=== PATIENT | male | born 1960 | race Caucasian/White ===

== ENCOUNTER 2017-06-16 20:02 | Emergency (ER) | payer BC ==
[2017-06-16 23:47] LABS: Hematocrit 44 % (42-52); Hemoglobin 15.3 g/dl (14.0-18.0); Mean Corpuscular HGB Conc 35 g/dl (31-36); Mean Corpuscular Hemoglobin 31 pg (27-31); Mean Corpuscular Volume 89 fL (80-94); Mean Platelet Volume 7 um3 (7.4-10.4); Red Blood Count 4.93 10^6/ul (4.0-5.4); Red Cell Distribution Width 14 % (10.5-15); White Blood Count 8.8 10^3/ul (3.5-10.8)
[2017-06-17 00:02] LABS: Albumin 4.2 g/dL (3.2-5.2); BUN/Creatinine Ratio 22.9 (8-20); Calcium 9.4 mg/dL (8.6-10.3); EGFR African American 89.7 (>60); EGFR Non-African American 69.7 (>60); Globulin 2.6 g/dL (2-4); Total Bilirubin 0.3 mg/dL (0.2-1.0); Total Protein 6.8 g/dL (6.4-8.9)
[2017-06-17 00:27] LABS: Potassium 4.1 mmol/L (3.5-5.0)
[2017-06-17] MEDS ORDERED: ALPRAZolam TAB* 0.25 MG PO ONE (01:00)
--- NOTE | 2017-06-17 01:11 | ED ---
Елена Collazo Emily, scribed for Bo Zhang on 06/16/17 at 2306 . Shortness of Breath - HPI Summary HPI Summary: This patient is a 56 year old M presenting to [facility] accompanied by family with a chief complaint of intermittent SOB that began 2 weeks ago. Symptoms began upon operation on R foot. The patient rates the pain 0/10 in severity. Symptoms aggravated by time of day (specifically night). Symptoms alleviated by nothing. Patient reports panic attacks. Pt was seen on 06/02/2017 for similar symptoms and was diagnosed with anxiety. - History of Current Complaint Chief Complaint: EDShortnessOfBreath Time Seen by Provider: 06/16/17 22:26 Hx Obtained From: Patient Onset/Duration: Sudden Onset, Lasting Weeks, Still Present Timing: Constant Aggrevating Factors: Nothing Alleviating Factors: Nothing - Allergy/Home Medications Allergies/Adverse Reactions: Allergies Allergy/AdvReac Type Severity Reaction Status Date / Time crestor Allergy Severe Difficulty Uncoded 01/27/13 08:58 Breathing/Wheezing Home Medications: Home Medications Meclizine HCl [Meclizine 25] 25 mg PO Q6HR PRN 06/16/17 [History Confirmed 06/16] hydrOXYzine HCL TAB* [Atarax 10 MG TAB*] 10 mg PO TID PRN 06/16/17 [History Confirmed 06/16/17] PMH/Surg Hx/FS Hx/Imm Hx Previously Healthy: No Endocrine/Hematology History: Denies: Hx Diabetes, Hx Thyroid Disease Cardiovascular History: Reports: Hx Hypertension Denies: Hx Pacemaker/ICD Respiratory History: Denies: Hx Asthma, Hx Chronic Obstructive Pulmonary Disease (COPD) GI History: Denies: Hx Ulcer Sensory History: Denies: Hx Hearing Aid Psychiatric History: Denies: Hx Panic Disorder - Surgical History Surgery Procedure, Year, and Place: APPY, TONSILS, HYDROCELE REMOVED 1993. LEFT FOOT REBUILT-2013 - Immunization History Immunizations Up to Date: Yes Infectious Disease History: No Infectious Disease History: Denies: Hx Clostridium Difficile, Hx Hepatitis, Hx Human Immunodeficiency Virus (HIV), Hx of Known/Suspected MRSA, Hx Shingles, Hx Tuberculosis, Hx Known/ Suspected VRE, Hx Known/Suspected VRSA, History Other Infectious Disease, Traveled Outside the [place] in Last 30 Days - Family History Known Family History: Positive: None - Social History Occupation: Employed Full-time Lives: With Family Alcohol Use: None Substance Use Type: Reports: None Smoking Status (MU): Never Smoked Tobacco Review of Systems Positive: Shortness Of Breath Positive: Other - Positive panic attacks All Other Systems Reviewed And Are Negative: Yes Physical Exam Triage Information Reviewed: Yes Vital Signs On Initial Exam: Initial Vitals Temp Pulse Resp BP Pulse Ox 98.2 F 80 23 156/93 99 06/16/17 20:04 06/16/17 20:04 06/16/17 20:04 06/16/17 20:04 06/16/17 20:04 Vital Signs Reviewed: Yes Appearance: Positive: Well-Appearing, No Pain Distress Skin: Positive: Warm, Skin Color Reflects Adequate Perfusion, Dry Head/Face: Positive: Normal Head/Face Inspection Eyes: Positive: EOMI, DILLON ENT: Positive: Normal ENT inspection Neck: Positive: Supple, Nontender Respiratory/Lung Sounds: Positive: Clear to Auscultation, Breath Sounds Present Cardiovascular: Positive: RRR, Pulses are Symmetrical in both Upper and Lower Extremities Abdomen Description: Positive: Nontender, Soft Bowel Sounds: Positive: Present Musculoskeletal: Positive: Normal, Strength/ROM Intact, Other - Cast on R leg Neurological: Positive: Normal, Sensory/Motor Intact, Alert, Oriented to Person Place, Time - [place] Coma Scale Coma Scale Total: 15 Diagnostics - Vital Signs Vital Signs Temp Pulse Resp BP Pulse Ox 06/16/17 22:33 67 98 06/16/17 22:32 137/97 06/16/17 20:04 98.2 F 80 23 156/93 99 - Laboratory Lab Results: Lab Results 06/16/17 06/16/17 06/16/17 Range/Units 23:38 23:38 23:38 WBC 8.8 (3.5-10.8) 10^3/ul RBC 4.93 (4.0-5.4) 10^6/ul Hgb 15.3 (14.0-18.0) g/dl Hct 44 (42-52) % MCV 89 (80-94) fL MCH 31 (27-31) pg MCHC 35 (31-36) g/dl RDW 14 (10.5-15) % Plt Count 247 (150-450) 10^3/ul MPV 7 L (7.4-10.4) um3 Neut % (Auto) 53.8 (38-83) % Lymph % (Auto) 30.3 (25-47) % [place] % (Auto) 10.6 H (1-9) % Eos % (Auto) 4.6 (0-6) % Baso % (Auto) 0.7 (0-2) % Absolute Neuts (auto) 4.7 (1.5-7.7) 10^3/ul Absolute Lymphs (auto) 2.7 (1.0-4.8) 10^3/ul Absolute Monos (auto) 0.9 H (0-0.8) 10^3/ul Absolute Eos (auto) 0.4 (0-0.6) 10^3/ul Absolute Basos (auto) 0.1 (0-0.2) 10^3/ul Absolute Nucleated RBC 0 10^3/ul Nucleated RBC % 0 INR (Anticoag Therapy) 0.84 L (0.89-1.11) APTT 23.7 L (26.0-36.3) seconds D-Dimer, Quantitative < 200 (Less Than 230) ng/mL Sodium (133-145) mmol/L Potassium (3.5-5.0) mmol/L Chloride (101-111) mmol/L Carbon Dioxide (22-32) mmol/L Anion Gap (2-11) mmol/L BUN (6-24) mg/dL Creatinine (0.67-1.17) mg/dL Est GFR ( Amer) (>60) Est GFR (Non-Af Amer) (>60) BUN/Creatinine Ratio (8-20) Glucose (70-100) mg/dL Lactic Acid (0.5-2.0) mmol/L Calcium (8.6-10.3) mg/dL Total Bilirubin (0.2-1.0) mg/dL AST (13-39) U/L ALT (7-52) U/L Alkaline Phosphatase (34-104) U/L Troponin I (<0.04) ng/mL B-Natriuretic Peptide 14 ( - 100) pg/mL Total Protein (6.4-8.9) g/dL Albumin (3.2-5.2) g/dL Globulin (2-4) g/dL Albumin/Globulin Ratio (1-3) 06/16/17 06/16/17 Range/Units 23:38 23:38 WBC (3.5-10.8) 10^3/ul RBC (4.0-5.4) 10^6/ul Hgb (14.0-18.0) g/dl Hct (42-52) % MCV (80-94) fL MCH (27-31) pg MCHC (31-36) g/dl RDW (10.5-15) % Plt Count (150-450) 10^3/ul MPV (7.4-10.4) um3 Neut % (Auto) (38-83) % Lymph % (Auto) (25-47) % [place] % (Auto) (1-9) % Eos % (Auto) (0-6) % Baso % (Auto) (0-2) % Absolute Neuts (auto) (1.5-7.7) 10^3/ul Absolute Lymphs (auto) (1.0-4.8) 10^3/ul Absolute Monos (auto) (0-0.8) 10^3/ul Absolute Eos (auto) (0-0.6) 10^3/ul Absolute Basos (auto) (0-0.2) 10^3/ul Absolute Nucleated RBC 10^3/ul Nucleated RBC % INR (Anticoag Therapy) (0.89-1.11) APTT (26.0-36.3) seconds D-Dimer, Quantitative (Less Than 230) ng/mL Sodium 137 (133-145) mmol/L Potassium 4.1 (3.5-5.0) mmol/L Chloride 103 (101-111) mmol/L Carbon Dioxide 27 (22-32) mmol/L Anion Gap 7 (2-11) mmol/L BUN 25 H (6-24) mg/dL Creatinine 1.09 (0.67-1.17) mg/dL Est GFR ( Amer) 89.7 (>60) Est GFR (Non-Af Amer) 69.7 (>60) BUN/Creatinine Ratio 22.9 H (8-20) Glucose 111 H (70-100) mg/dL Lactic Acid 1.5 (0.5-2.0) mmol/L Calcium 9.4 (8.6-10.3) mg/dL Total Bilirubin 0.30 (0.2-1.0) mg/dL AST 21 (13-39) U/L ALT 23 (7-52) U/L Alkaline Phosphatase 61 (34-104) U/L Troponin I 0.00 (<0.04) ng/mL B-Natriuretic Peptide ( - 100) pg/mL Total Protein 6.8 (6.4-8.9) g/dL Albumin 4.2 (3.2-5.2) g/dL Globulin 2.6 (2-4) g/dL Albumin/Globulin Ratio 1.6 (1-3) Result Diagrams: 06/16/17 23:38 06/16/17 23:38 Lab Statement: Any lab studies that have been ordered have been reviewed, and results considered in the medical decision making process. - Radiology CXR Xray Interpretation: No Acute Changes Radiology Interpretation Completed By: ED Physician - EKG 231 Cardiac Rate: NL - 56 BPM EKG Rhythm: Sinus Rhythm EKG Interpretation: No acute changes Re-Evaluation - Re-Evaluation First Eval Re-Evaluation Time: 00:56 Comment: Discussed plan of care with pt. Course/Dx - Course Assessment/Plan: This patient is a 56 year old M presenting to [facility] accompanied by family with a chief complaint of intermittent SOB that began 2 weeks ago. Symptoms began upon operation on R foot. The patient rates the pain 0 /10 in severity. Symptoms aggravated by time of day (specifically night). Symptoms alleviated by nothing. Patient reports panic attacks. Pt was seen on for similar symptoms and was diagnosed with anxiety. Physical Exam Findings. Cast on R leg. Medical Decision Making. An EKG taken at 2319 reveals nml sinus rhythm at 56 BPM with no acute changes. CXR read by ED physician reveals no acute changes. Test results were within normal limits. Unlikely PE at this time. Patient will be discharged with prescription for xanax and with follow up from PCP. The patient is agreeable with this plan. - Diagnoses Differential Diagnosis/HQI/PQRI: Positive: CHF, DC, Pneumonia, Pneumothorax, Pulmonary Embolism, Pulmonary Edema Provider Diagnoses: Dyspnea, Anxiety Discharge - Discharge Plan Condition: Stable Disposition: HOME Prescriptions: ALPRAZolam TAB* [Xanax TAB*] 0.25 mg PO BID PRN #10 tab MDD 2 PRN Reason: Anxiety Patient Education Materials: Dyspnea (ED), Anxiety (ED), Alprazolam (By mouth) Referrals: Yvan Ruiz MD [Primary Care Provider] - 3 Days Additional Instructions: RETURN TO THE EMERGENCY DEPARTMENT FOR CHANGING OR WORSENING SYMPTOMS. The documentation as recorded by the Елена rdz Emily accurately reflects the service I personally performed and the decisions made by , Bo Zhang.
[2017-06-17 01:25] VITALS: BP 139/92
--- NOTE | 2017-06-17 08:40 | RAD ---
INDICATION: Difficulty breathing. COMPARISON: Chest x-ray dated August 11, 2004 TECHNIQUE: Single AP portable view of the chest was obtained. FINDINGS: Image quality is compromised due to the relative inferiority of a portable chest x-ray. The heart and mediastinum exhibit normal size and contour. The lungs are grossly clear. There is no evidence of a large pleural effusion. Visualized bones are normal for the patient's age. IMPRESSION: No radiographic evidence for acute cardiopulmonary abnormality on this portable chest x-ray.
== END 2017-06-17 01:30 | disposition home or self-care (01) ==
LOC: ED 20:02
DX: R06.00 Dyspnea, unspecified (principal); F41.9 Anxiety disorder, unspecified; I10 Essential (primary) hypertension
CPT/HCPCS: 36415; 71010; 80053; 83605; 83880; 84484; 85025; 85379; 85610; 85730; 93005; 99283; A9270-GY

== ENCOUNTER 2017-09-19 17:40 | Emergency (ER) | payer BC ==
[2017-09-19 17:53] VITALS: BP 152/104
--- NOTE | 2017-09-19 18:51 | UC ---
Throat Pain/Nasal Mendez HPI - HPI Summary HPI Summary: Pt presents with sinus pain/pressure/congestion, b/l ear pain, and sore throat for the last 2 days. He says that everyone at work has been sick with similar symptoms over the last 3 weeks. He has not taken anything for his symptoms. Denies fever, chills, cough, SOB, chest pain, abdominal pain, n/v/d/c, or body aches. - History of Current Complaint Chief Complaint: UCRespiratory Stated Complaint: sore throat, and ear ache Time Seen by Provider: 09/19/17 17:59 Hx Obtained From: Patient Onset/Duration: Gradual Onset Severity: Moderate Pain Intensity: 4 Pain Scale Used: 0-10 Numeric - Allergies/Home Medications Allergies/Adverse Reactions: Allergies Allergy/AdvReac Type Severity Reaction Status Date / Time crestor Allergy Severe Difficulty Uncoded 09/19/17 17:45 Breathing/Wheezing Home Medications: Home Medications Omeprazole [Ra Omeprazole] 20 mg PO DAILY 09/19/17 [History Confirmed 09/19/17] Phenol 1.4% [place]* [Chloroseptic Throat [place]*] 1 spray [place] BID 09/19/17 [ History Confirmed 09/19/17] PMH/Surg Hx/FS Hx/Imm Hx Cardiovascular History: Hypertension GI/ History: Gastroesophageal Reflux - Surgical History Surgical History: Yes Surgery Procedure, Year, and Place: APPY, TONSILS, HYDROCELE REMOVED 1993. LEFT FOOT REBUILT-2013, R foot surgery 2016 - Family History Known Family History: Positive: Hypertension - Social History Occupation: Employed Full-time Lives: With Family Alcohol Use: None Substance Use Type: None Smoking Status (MU): Never Smoked Tobacco - Immunization History Most Recent Influenza Vaccination: 06/2015 Review of Systems Constitutional: Negative Skin: Negative Eyes: Negative ENT: Sore Throat, Ear Ache, Nasal Discharge, Sinus Congestion, Sinus Pain/ Tenderness Respiratory: Negative Cardiovascular: Negative Gastrointestinal: Negative Musculoskeletal: Negative Neurological: Negative Psychological: Negative All Other Systems Reviewed And Are Negative: Yes Physical Exam Triage Information Reviewed: Yes Appearance: Well-Appearing, No Pain Distress, Well-Nourished Vital Signs: Initial Vital Signs Temp 100.3 F 09/19/17 17:44 Pulse 79 09/19/17 17:44 Resp 18 09/19/17 17:44 BP 152/104 09/19/17 17:44 Pulse Ox 96 09/19/17 17:44 Vital Signs Reviewed: Yes Eyes: Positive: Conjunctiva Clear. Negative: Conjunctiva Inflamed, Discharge ENT: Positive: Hearing grossly normal, Pharyngeal erythema, Nasal congestion, Nasal drainage, TM bulging - Right ear, TM red - Right ear, Sinus tenderness, Uvula midline. Negative: Tonsillar swelling, Tonsillar exudate, Hoarse voice Neck: Positive: Supple, No Lymphadenopathy, Other: - TTP posterior cervical lymphnodes Respiratory: Positive: Chest non-tender, Lungs clear, Normal breath sounds, No respiratory distress, No accessory muscle use Cardiovascular: Positive: RRR, No Murmur, Pulses Normal Neurological: Positive: Alert Psychological: Positive: Age Appropriate Behavior Skin: Negative: rashes Throat Pain/Nasal Course/Dx - Course Course Of Treatment: Right otitis media. Sinusitis - Differential Dx/Diagnosis Provider Diagnoses: Right otitis media. Sinusitis Discharge - Discharge Plan Condition: Stable Disposition: HOME Prescriptions: Amoxicillin/Clavulanate TAB* [Augmentin TAB 875*] 875 mg PO BID #20 tab Patient Education Materials: Ear Infection (ED) Referrals: Yvan Ruiz MD [Primary Care Provider] - Additional Instructions: If you develop a fever, shortness of breath, chest pain, new or worsening symptoms - please call your PCP or go to the ED. Your blood pressure was high at todays visit. Please see your primary provider within 4 weeks for recheck and re-evaluation.
== END 2017-09-19 19:25 | disposition home or self-care (01) ==
LOC: UCEAST 17:40
DX: J32.9 Chronic sinusitis, unspecified (principal); H66.91 Otitis media, unspecified, right ear; I10 Essential (primary) hypertension; K21.9 Gastro-esophageal reflux disease without esophagitis
CPT/HCPCS: 87651; 99212; G0463

== ENCOUNTER 2017-10-01 15:06 | Emergency (ER) | payer BC ==
[2017-10-01 16:12] VITALS: BP 133/88
--- NOTE | 2017-10-01 16:52 | UC ---
Throat Pain/Nasal Mendez HPI - HPI Summary HPI Summary: Patient presents with a past medical history of HTn and hyperlipdemia. He present today with continued re-occurring throat pain. He states e was treated with a 10 day course of Augmenting and while he was on the medication he felt better. He complains that his ears are plugged, and he continues to feel tired. He states he completed the antibiotics and now his throat hurts again. He states he is able to eat, drink and handle his own secretions. He denies fever, chills, chest or abdominal pain, nausea, vomiting or diarrhea. - History of Current Complaint Chief Complaint: UCGeneralIllness Stated Complaint: SORE THROAT,COUGH,EARS PLUGGED Time Seen by Provider: 10/01/17 16:35 Hx Obtained From: Patient Onset/Duration: Sudden Onset, Lasting Days Pain Intensity: 5 Cough: Nonproductive Associated Signs & Symptoms: Positive: Sinus Discomfort, Nasal Discharge - Epiglottits Risk Factors Epiglottis Risk Factors: Negative - Allergies/Home Medications Allergies/Adverse Reactions: Allergies Allergy/AdvReac Type Severity Reaction Status Date / Time crestor Allergy Severe Difficulty Uncoded 10/01/17 16:12 Breathing/Wheezing PMH/Surg Hx/FS Hx/Imm Hx Previously Healthy: Yes - Surgical History Surgical History: Yes Surgery Procedure, Year, and Place: APPY, TONSILS, HYDROCELE REMOVED 1993. LEFT FOOT REBUILT-2013, R foot surgery 2016 - Family History Known Family History: Positive: None, Cardiac Disease, Hypertension - Social History Occupation: Employed Full-time Lives: Alone Alcohol Use: None Substance Use Type: None Smoking Status (MU): Never Smoked Tobacco - Immunization History Most Recent Influenza Vaccination: 06/2015 Review of Systems Constitutional: Fatigue Skin: Negative Eyes: Negative ENT: Sore Throat, Ear Ache Respiratory: Negative Cardiovascular: Negative Gastrointestinal: Negative Genitourinary: Negative Motor: Negative Neurovascular: Negative Musculoskeletal: Negative Neurological: Negative Psychological: Negative Is Patient Immunocompromised?: No All Other Systems Reviewed And Are Negative: Yes Physical Exam Triage Information Reviewed: Yes Appearance: Well-Appearing Vital Signs: Initial Vital Signs Temp 98.5 F 10/01/17 16:08 Pulse 58 10/01/17 16:08 Resp 16 10/01/17 16:08 BP 133/88 10/01/17 16:08 Pulse Ox 98 10/01/17 16:08 Eye Exam: Normal ENT Exam: Normal Neck exam: Normal Neck: Positive: 1 Respiratory Exam: Normal Cardiovascular Exam: Normal Abdominal Exam: Normal Musculoskeletal Exam: Normal Neurological Exam: Normal Psychological Exam: Normal Skin Exam: Normal Throat Pain/Nasal Course/Dx - Course Course Of Treatment: URI discharge: This is a pleasant patient with an upper respiratory tract infection. This appears to be viral and without significant evidence of severe respiratory distress, severe upper or lower airway compromise , hypoxemia, toxicity, shock, hemodynamic or cordiopulmonary instability, epiglottitis, peritonsilar abscess, retropharyngeal abscess, bacterial tracheitis, peumonia, or any disease process requiring other immediate surgical or medical intervention at this time. It is understood that if the patient is not improving as exspected or if other new symptoms or signs of concern develop , other etiologies or diagnoses may need to be considered requrring other tests , treatments, consultations, and/or admission. The diagnoses., plan, expectedcourse, follow-up , and return precautions were discussed and all quesions were answered. I told the patient to push fluids, take tylenol and or advil every 4 hours and if your symtpoms do not improve as anticipated follow up with your PCP in 48 hours. - Differential Dx/Diagnosis Differential Diagnosis/HQI/PQRI: URI Provider Diagnoses: uri Discharge - Discharge Plan Condition: Stable Disposition: HOME Patient Education Materials: Viral Syndrome (ED) Referrals: Yvan Ruiz MD [Primary Care Provider] -
== END 2017-10-01 16:54 | disposition home or self-care (01) ==
LOC: UCEAST 15:06
DX: J06.9 Acute upper respiratory infection, unspecified (principal); Z88.8 Allergy status to other drugs, medicaments and biological substances
CPT/HCPCS: 99211; G0463

== ENCOUNTER 2018-07-31 12:50 | Emergency (ER) | payer BC ==
--- NOTE | 2018-07-31 13:03 | UC ---
General HPI - HPI Summary HPI Summary: 57 yo gentleman c/o sinus pressure and pain last several days. + bilat ear discomfort. Yesterday developed sore throat. + recent strep throat exposure. No rash. Minimal cough. No sob / cp. No GI issues. No recent fever /chills. - History of Current Complaint Stated Complaint: SORE THROAT EAR PAIN Time Seen by Provider: 07/31/18 13:00 Hx Obtained From: Patient - Allergy/Home Medications Allergies/Adverse Reactions: Allergies Allergy/AdvReac Type Severity Reaction Status Date / Time crestor Allergy Severe Difficulty Uncoded 10/01/17 16:12 Breathing/Wheezing PMH/Surg Hx/FS Hx/Imm Hx Previously Healthy: Yes - Surgical History Surgical History: Yes Surgery Procedure, Year, and Place: APPY, TONSILS, HYDROCELE REMOVED 1993. LEFT FOOT REBUILT-2013, R foot surgery 2016 - Family History Known Family History: Positive: None, Cardiac Disease, Hypertension - Social History Alcohol Use: None Substance Use Type: None Smoking Status (MU): Never Smoked Tobacco - Immunization History Most Recent Influenza Vaccination: 06/2015 Review of Systems All Other Systems Reviewed And Are Negative: Yes Constitutional: Positive: Other - see hpi Skin: Positive: Negative Eyes: Positive: Other - see hpi ENT: Positive: Other - see hpi Respiratory: Positive: Other - see hpi Cardiovascular: Positive: Negative Gastrointestinal: Positive: Negative Genitourinary: Positive: Negative Motor: Positive: Negative Neurovascular: Positive: Negative Musculoskeletal: Positive: Negative Neurological: Positive: Negative Psychological: Positive: Negative Is Patient Immunocompromised?: No Physical Exam Triage Information Reviewed: Yes Appearance: Well-Nourished - sitting up, conversing easily and appropriately. NAD. Vital Signs Reviewed: Yes Eye Exam: Normal ENT: Positive: Pharyngeal erythema - mild post pharyngeal redness, no sores / exudates. No airway obst., Nasal congestion, TM dull - TM sosa dull rtx'd au. EACs without redness or drainage. Neck exam: Normal Neck: Positive: Supple, Nontender, No Lymphadenopathy Respiratory Exam: Normal Respiratory: Positive: Chest non-tender, Lungs clear, Normal breath sounds, No respiratory distress, No accessory muscle use Cardiovascular Exam: Normal Cardiovascular: Positive: RRR, No Murmur, Pulses Normal, Brisk Capillary Refill Abdominal Exam: Normal Abdomen Description: Positive: Nontender Musculoskeletal Exam: Normal - gait steady. Moves x 4 ext's. Neurological Exam: Normal - grossly nonfocal Psychological Exam: Normal - conversing easily and appropriately. Skin Exam: Normal - no visible or reported rash. Course/Dx - Course Course Of Treatment: RST negative. Reviewed coa / tx plan. Advised to minimize decongestant. See avs instructions. Questions as posed answered to the best of my ability. - Diagnoses Provider Diagnosis: Sinusitis, Otitis, serous Discharge - Sign-Out/Discharge Documenting (check all that apply): Patient Departure All imaging exams completed and their final reports reviewed: No Studies - Discharge Plan Condition: Stable Disposition: HOME Prescriptions: Amoxicillin/Clavulanate TAB* [Augmentin TAB 875*] 875 mg PO BID #20 tab Patient Education Materials: Sinusitis (ED), Serous Otitis Media (ED) Referrals: Yvan Ruiz MD [Primary Care Provider] - Additional Instructions: Drink plenty of fluids. Minimize decongestant use. Follow up with your primary care phyisician in the next 4 weeks for blood pressure recheck. (Blood pressure today 154/97) Seek medical attention for worse or new problems. - Billing Disposition and Condition Condition: STABLE Disposition: Home
[2018-07-31 13:06] VITALS: BP 154/97
== END 2018-07-31 13:43 | disposition home or self-care (01) ==
LOC: UCEAST 12:50
DX: J32.9 Chronic sinusitis, unspecified (principal); H65.93 Unspecified nonsuppurative otitis media, bilateral; Z88.8 Allergy status to other drugs, medicaments and biological substances
CPT/HCPCS: 87651; 99212; G0463

== ENCOUNTER 2019-04-07 13:25 | Emergency (ER) | payer BC ==
--- NOTE | 2019-04-07 13:30 | UC ---
Skin Complaint HPI - HPI Summary HPI Summary: 58-year-old male who awakened during the night with mid back pain. He got up and put a heating pad against his back and when he removed that he had some blisters and rash to his midback is continuously painful. He has had a shingles vaccination in the past. - History of Current Complaint Time Seen by Provider: 04/07/19 13:26 Stated Complaint: SKIN COMPLAINT Hx Obtained From: Patient Onset/Duration: Gradual Onset Skin Exposure Onset/Duration: Hours Ago Timing: Constant Onset Severity: Mild Current Severity: Mild Location: Other Character: Pain, Redness Aggravating Factor(s): Clothing, Touch Alleviating Factor(s): Nothing Associated Signs & Symptoms: Positive: Negative - Allergy/Home Medications Allergies/Adverse Reactions: Allergies Allergy/AdvReac Type Severity Reaction Status Date / Time crestor Allergy Severe Difficulty Uncoded 04/07/19 13:35 Breathing/Wheezing PMH/Surg Hx/FS Hx/Imm Hx Previously Healthy: Yes Endocrine History: Dyslipidemia Cardiovascular History: Hypertension GI/ History: Gastroesophageal Reflux Neurological History: Other - Vertigo Psychological History: Anxiety - Surgical History Surgical History: Yes Surgery Procedure, Year, and Place: APPY, TONSILS, HYDROCELE REMOVED 1993. LEFT FOOT REBUILT-2013, R foot surgery 2017 - Family History Known Family History: Positive: None, Cardiac Disease, Hypertension - Social History Alcohol Use: None Substance Use Type: None Smoking Status (MU): Never Smoked Tobacco - Immunization History Most Recent Influenza Vaccination: 06/2015 Review of Systems All Other Systems Reviewed And Are Negative: Yes Skin: Positive: Other - Vesicular rash to mid back. Started this morning after he had pain to the area burning sensation and then applied a heating pad which resulted in the rash. Is Patient Immunocompromised?: No Physical Exam Triage Information Reviewed: Yes Appearance: Well-Appearing, No Pain Distress, Well-Nourished Vital Signs Reviewed: Yes Skin: Positive: Rashes - Vesicular rash to the mid back surrounded by erythema. At this point time it is not following a dermatome. Course/Dx - Course Course Of Treatment: The patient is fairly comfortable here. I believe he has early shingles and I' m going to treat him accordingly. He is to follow-up with his primary care provider if no improvement in 3 or 4 days. He is to avoid contact with people who have not had chickenpox especially women who have not had chickenpox. Patient is aware of these instructions. - Diagnoses Provider Diagnosis: Shingles Discharge - Sign-Out/Discharge Documenting (check all that apply): Patient Departure All imaging exams completed and their final reports reviewed: No Studies - Discharge Plan Condition: Fair Disposition: HOME Prescriptions: ValACYclovir (*) [Valtrex 1 GM(*)] 1 gm PO TID 7 Days #21 tab Patient Education Materials: [place] (ED) Referrals: Yvan Ruiz MD [Primary Care Provider] - Additional Instructions: Keep the area covered, avoid scratching, do not have any contact with a person who has not had chickenpox. The drainage is what is contagious. Follow-up with your primary care provider if no improvement in 3 or 4 days. - Billing Disposition and Condition Condition: FAIR Disposition: Home - Attestation Statements Provider Attestation: I was available for consult. This patient was seen by the RANDY. The patient was not presented to , seen by or examined by ri -Kd Medley MD
[2019-04-07 13:34] VITALS: BP 173/91
== END 2019-04-07 13:59 | disposition home or self-care (01) ==
LOC: UCEAST 13:25
DX: B02.9 Zoster without complications (principal); I10 Essential (primary) hypertension
CPT/HCPCS: 99212; G0463

== ENCOUNTER 2019-12-22 08:24 | Emergency (ER) | payer BC, OTHER ==
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
[2019-12-22 09:41] VITALS: BP 134/90
== END 2019-12-22 09:36 | disposition home or self-care (01) ==
LOC: UCEAST 08:24
DX: R50.9 Fever, unspecified (principal); R53.81 Other malaise; R53.83 Other fatigue; Z20.828 Contact with and (suspected) exposure to other viral communicable diseases; E78.5 Hyperlipidemia, unspecified; I10 Essential (primary) hypertension; K21.9 Gastro-esophageal reflux disease without esophagitis; F41.9 Anxiety disorder, unspecified; Z79.899 Other long term (current) drug therapy; Z88.8 Allergy status to other drugs, medicaments and biological substances
CPT/HCPCS: 87635; 99211; G0463; Q3014; U0003